=== PATIENT | male | born 1955 | race Asian ===

== ENCOUNTER 2017-10-30 10:09 | Outpatient (CLI) | payer OTHER | END 2017-10-30 19:32 | disposition home or self-care (01) | LOC: RAD 10:09 | DX: R05 Cough (principal); R06.02 Shortness of breath ==

== ENCOUNTER 2017-11-11 08:14 | Day surgery (SDC) | payer OTHER ==
[2017-11-11 08:59] LABS: PLATELET COUNT 179 K/uL (142-355)
== END 2017-11-11 15:20 | disposition home or self-care (01) ==
LOC: OR 08:14
PROVIDERS: Student in an Organized Health Care Education/Training Program
PROC: 0YU50JZ Supplement Right Inguinal Region with Synthetic Substitute, Open Approach (ICD-10-PCS; principal; 2017-11-11)
DX: K40.90 Unilateral inguinal hernia, without obstruction or gangrene, not specified as recurrent (principal)
CPT/HCPCS: 80053; 85027; J0180; C1729; J0132; J0690; J1100; J1170; J2001; J2250; J2405; J2704; J2710; J3010; J3490

== ENCOUNTER 2017-11-25 10:12 | Outpatient (CLI) | payer OTHER | END 2017-11-25 18:18 | disposition home or self-care (01) | LOC: US 10:12 | DX: N50.89 Other specified disorders of the male genital organs (principal) ==

== ENCOUNTER 2020-06-09 08:43 | Emergency (ER) | payer OTHER ==
[~2020-06-09] VITALS: Ht 167.6 cm; Wt 68.9 kg
[2020-06-09] MEDS ORDERED: ONDA4TAB3 PO (09:25)
[2020-06-09] MEDS ORDERED: PEPCID20 MG PO (09:25)
[2020-06-09 09:56] LABS: POTASSIUM 3.8 mmol/L (3.6-5.2)
[2020-06-09 10:28] LABS: PLATELET COUNT 224 K/uL (142-355)
[2020-06-09 20:15] VITALS: TEMP 98.8
[2020-06-09 20:56] VITALS: BP 113/83
== END 2020-06-09 21:00 | disposition short-term general hospital (02) ==
LOC: ED 08:43
PROVIDERS: Family Medicine
DX: K59.81 Ogilvie syndrome (principal)
CPT/HCPCS: 80053; 81000; 82150; 83690; 85007; 85027; 96360; 96361; 96374; 96375; 99284; J1885; J2270; J2405; J2550; J3490; Q9963

== ENCOUNTER 2021-07-18 15:51 | Outpatient (CLI) | payer OTHER ==
[~2021-07-18 15:51] MED LIST: ONDA4TAB3 PO; PEPCID20 MG PO
[2021-07-18 16:19] LABS: PLATELET COUNT 232 K/uL (142-355)
[2021-07-18 16:52] LABS: POTASSIUM 4.8 mmol/L (3.6-5.2)
== END 2021-07-18 19:19 | disposition home or self-care (01) ==
LOC: LAB 15:51
PROVIDERS: ATTEND Internal Medicine
DX: E03.9 Hypothyroidism, unspecified (principal); E78.00 Pure hypercholesterolemia, unspecified; D64.9 Anemia, unspecified
CPT/HCPCS: 80053; 80061; 84439; 84443; 85027

== ENCOUNTER 2021-07-25 16:58 | Outpatient (CLI) | payer OTHER | END 2021-07-25 19:05 | disposition home or self-care (01) | LOC: LAB 16:58 | PROVIDERS: ATTEND Internal Medicine | DX: D64.9 Anemia, unspecified (principal) | CPT/HCPCS: 82607; 82728; 82746; 83540; 83550 ==

== ENCOUNTER 2022-08-19 14:25 | Outpatient (CLI) | payer OTHER ==
[2022-08-19 14:59] LABS: PLATELET COUNT 189 K/uL (142-355)
== END 2022-08-19 19:10 | disposition home or self-care (01) ==
LOC: LAB 14:25
PROVIDERS: ATTEND Internal Medicine
DX: E03.8 Other specified hypothyroidism (principal); R82.998 Other abnormal findings in urine
CPT/HCPCS: 80053; 80061; 81000; 82607; 84439; 84443; 85027; 87077; 87086; 87088; 87186

== ENCOUNTER 2023-02-15 20:34 | Emergency (ER) | payer OTHER ==
[~2023-02-15] VITALS: Ht 167.6 cm; Wt 71.7 kg
[2023-02-15 20:40] VITALS: BP 109/68; TEMP 98
== END 2023-02-15 21:51 | disposition home or self-care (01) ==
LOC: ED 20:34
DX: S81.852A Open bite, left lower leg, initial encounter (principal); W54.0XXA Bitten by dog, initial encounter
CPT/HCPCS: 90471; 90715; 99282

== ENCOUNTER 2023-03-04 15:25 | Outpatient (CLI) | payer OTHER ==
[2023-03-04 15:56] LABS: POTASSIUM 4.4 mmol/L (3.6-5.2)
[2023-03-04 16:09] LABS: PLATELET COUNT 197 K/uL (142-355)
== END 2023-03-04 19:06 | disposition home or self-care (01) ==
LOC: LAB 15:25
PROVIDERS: ATTEND Internal Medicine
DX: K56.609 Unspecified intestinal obstruction, unspecified as to partial versus complete obstruction (principal); E03.8 Other specified hypothyroidism; R82.998 Other abnormal findings in urine
CPT/HCPCS: 80053; 80061; 81000; 84439; 84443; 85027; 87077; 87086; 87088; 87185